=== PATIENT | female | born 1990 ===

== ENCOUNTER → 2022-05-21 12:50 | Observation (INO) ==
[2022-05-21 10:38] LABS: Basophils % 0.1 %; Eosinophils % 0.3 %; Immature Granulocytes % 0.3 % (0-4); Red Cell Distribution Width 12.7 % (11.5-14.5)
[2022-05-21 10:39] LABS: Bilirubin,Urine Negative (Negative); Blood,Urine Negative (Negative); Clarity,Urine Clear (Clear); Color,Urine Light-Yellow (Yellow); Glucose,Urine (UA) Normal (Normal); Ketones,Urine Negative (Negative); Leukocyte Esterase,Urine Negative (Negative); Nitrite,Urine Negative (Negative); Protein,Urine Trace mg/dL (Neg-Trace); Specific Gravity,Urine 1.017 (1.010-1.025); Urobilinogen,Urine Normal (Normal)
[2022-05-21 10:40] LABS: Hematocrit 37.9 % (35.3-44.9); Hemoglobin 12.7 g/dL (11.5-15.4); Immature Platelets 6.3 % (1.1-6.1); Lymphocytes # 0.5 K/mcL (0.6-4.6); Lymphocytes % 7.5 %; Mean Corpuscular HGB Conc 33.5 g/dL (31.6-35.5); Mean Corpuscular Hemoglobin 28.7 pg (28.0-33.3); Mean Corpuscular Volume 85.7 fL (83.0-100.0); Mean Platelet Volume 11.5 fL (9.4-12.4); Monocytes # 0.6 K/mcL (0.0-1.3); Monocytes % 8.5 %; Neutrophils # 5.7 K/mcL (1.6-8.9); Platelet Count 133 K/mcL (140-400); Red Blood Count 4.42 M/mcL (3.82-4.97); Segmented Neutrophils % 83.3 %; White Blood Count 6.8 K/mcL (4.3-11.1)
[2022-05-21 10:57] LABS: BUN/Creatinine Ratio 22 (6-26); Blood Urea Nitrogen 15 mg/dL (6-20); Carbon Dioxide 20 mEq/L (23-29); Chloride 107 mEq/L (98-107); Glucose 78 mg/dL (70-105); Osmolality,Calculated 280 (280-300); Potassium 4.1 mEq/L (3.5-5.1); Sodium 135 mEq/L (136-145); eGFR For African Americans > 60 (> 60); eGFR For Non-African Americans > 60 (> 60)
[2022-05-21 10:59] LABS: Platelet Estimate Slight Decrease (Normal)
[2022-05-21 11:24] LABS: Adenovirus Not Detected (Not Detect); Coronavirus 229E Not Detected (Not Detect); Coronavirus HKU1 Not Detected (Not Detect); Coronavirus NL63 Not Detected (Not Detect); Coronavirus OC43 Not Detected (Not Detect)
[2022-05-21 11:26] LABS: Bordetella Pertussis Not Detected (Not Detect); Chlamydophila pneumoniae Not Detected (Not Detect); Human Metapneumovirus Not Detected (Not Detect); Human Rhinovirus/Enterovirus Not Detected (Not Detect); Influenza A Subtype 2009 H1 Not Detected (Not Detect); Influenza B Not Detected (Not Detect); Mycoplasma pneumoniae Not Detected (Not Detect); Parainfluenza Virus 1 Not Detected (Not Detect); Parainfluenza Virus 2 Not Detected (Not Detect); Parainfluenza Virus 3 Not Detected (Not Detect); Parainfluenza Virus 4 Not Detected (Not Detect); Respiratory Syncytial Virus Not Detected (Not Detect); SARS-CoV-2 DETECTED (Not Detect)
[~2022-05-21 12:50] MED LIST: Ondansetron 4 MG/2 ML VIAL IVP ONE; Ringers Solution, Lactated 1,000 ML IVC SCH
== END | disposition home or self-care (01) ==
LOC: 1NENULAB
PROVIDERS: ADMIT Advanced Practice Midwife; ATTEND Advanced Practice Midwife

== ENCOUNTER 2022-05-31 17:32 | Inpatient (IN) ==
[2022-05-31] MEDS ORDERED: Naloxone 0.4 MG/ML INJ IVP PRN (18:37)
[2022-05-31] MEDS ORDERED: Famotidine 20 MG/2 ML VIAL IVP PRN (18:37)
[2022-05-31] MEDS ORDERED: Azithromycin 500 MG in 0.9 % Sodium Chloride 250 ML IVPB PRN (18:37)
[2022-05-31] MEDS ORDERED: Metoclopramide 10 MG/2 ML VIAL IVP PRN (18:37)
[2022-05-31] MEDS ORDERED: *HR* Labetalol 20 MG/4 ML SYRINGE IVP ONE ×3 (18:49→19:21)
[2022-05-31 18:56] LABS: Basophils % 0.1 %; Eosinophils # 0.1 K/mcL (0.0-0.6); Eosinophils % 0.4 %; Hematocrit 37.6 % (35.3-44.9); Hemoglobin 12.9 g/dL (11.5-15.4); Immature Granulocytes % 0.5 % (0-4); Lymphocytes % 23.2 %; Mean Corpuscular HGB Conc 34.3 g/dL (31.6-35.5); Mean Corpuscular Hemoglobin 29.1 pg (28.0-33.3); Mean Corpuscular Volume 84.7 fL (83.0-100.0); Mean Platelet Volume 12.2 fL (9.4-12.4); Monocytes # 0.9 K/mcL (0.0-1.3); Monocytes % 6.9 %; Neutrophils # 8.8 K/mcL (1.6-8.9); Platelet Count 215 K/mcL (140-400); Red Blood Count 4.44 M/mcL (3.82-4.97); Red Cell Distribution Width 12.8 % (11.5-14.5); Segmented Neutrophils % 68.9 %; White Blood Count 12.7 K/mcL (4.3-11.1)
[2022-05-31 19:13] LABS: Amphetamine Screen,Urine Negative ng/mL (Cutoff=1000); Barbiturate Screen,Urine Negative ng/mL (Cutoff=200); Benzodiazepines Screen,Urine Negative ng/mL (Cutoff=200); Cannabinoid Screen,Urine Negative ng/mL (Cutoff = 50); Cocaine Screen,Urine Negative ng/mL (Cutoff= 300); Creatinine,Urine 196 mg/dL; Opiate Screen,Urine Negative ng/mL (Cutoff=300); Phencyclidine Screen,Urine Negative ng/mL (Cutoff=25); Protein/Creatinine Ratio,Urine 0.58 mg/mg (0.00-0.20)
[2022-05-31 19:44] LABS: Alanine Aminotransferase 31 Units/L (7-52); BUN/Creatinine Ratio 19 (6-26); Blood Urea Nitrogen 16 mg/dL (6-20); Uric Acid 6.3 mg/dL (2.3-7.6); eGFR For African Americans > 60 (> 60); eGFR For Non-African Americans > 60 (> 60)
[2022-05-31] MEDS ORDERED: Magnesium Sulf 20 gm/SW 500mL 6 GM/150 ML BAG IV ONE (19:50)
[2022-05-31] MEDS: miSOPROStoL 25 MCG TABLET PO SCH (20:10)
[2022-05-31] MEDS ORDERED: EPHEDrine 50 MG/ML VIAL IVP PRN (20:10)
[2022-05-31] MEDS: Ringers Solution, Lactated 1,000 ML IVC SCH (20:15)
[2022-05-31] MEDS ORDERED: Calcium Gluconate 1,000 MG/10 ML VIAL IVP PRN (20:35)
[2022-05-31] MEDS: Magnesium Sulf 20 gm/SW 500mL 20 GM/500 ML IV.SOLN IVC SCH (20:54)
[2022-06-01] MEDS: miSOPROStoL 25 MCG TABLET PO SCH (00:12)
[2022-06-01] MEDS: Oxytocin 30 UNIT/503 ML BAG IVC SCH ×2 (04:20→21:59)
[2022-06-01] MEDS: Ringers Solution, Lactated 1,000 ML IVC SCH (06:58)
[2022-06-01] MEDS: Magnesium Sulf 20 gm/SW 500mL 20 GM/500 ML IV.SOLN IVC SCH ×2 (06:58→16:59)
[2022-06-01 08:30] LABS: Basophils % 0.2 %; Eosinophils % 0.2 %; Hematocrit 37.8 % (35.3-44.9); Hemoglobin 12.9 g/dL (11.5-15.4); Immature Granulocytes % 0.5 % (0-4); Lymphocytes # 2.4 K/mcL (0.6-4.6); Lymphocytes % 18.2 %; Mean Corpuscular HGB Conc 34.1 g/dL (31.6-35.5); Mean Corpuscular Hemoglobin 28.7 pg (28.0-33.3); Mean Corpuscular Volume 84.2 fL (83.0-100.0); Mean Platelet Volume 11.7 fL (9.4-12.4); Monocytes # 0.8 K/mcL (0.0-1.3); Neutrophils # 9.9 K/mcL (1.6-8.9); Platelet Count 185 K/mcL (140-400); Red Blood Count 4.49 M/mcL (3.82-4.97); Red Cell Distribution Width 12.9 % (11.5-14.5); Segmented Neutrophils % 74.9 %; White Blood Count 13.2 K/mcL (4.3-11.1)
[2022-06-01 08:50] LABS: Alanine Aminotransferase 31 Units/L (7-52); Aspartate Amino Transferase 25 Units/L (13-39); BUN/Creatinine Ratio 13 (6-26); Blood Urea Nitrogen 9 mg/dL (6-20); Lactate Dehydrogenase 186 Units/L (140-271); Uric Acid 6.5 mg/dL (2.3-7.6); eGFR For African Americans > 60 (> 60); eGFR For Non-African Americans > 60 (> 60)
[2022-06-01] MEDS: Epidural Premix (fent/bupiv) 110 ML EP SCH ×2 (09:34→17:23)
[2022-06-01] MEDS ORDERED: Ropivacaine/PF 0.2% 20 ML VIAL ONE (19:50)
[2022-06-01] MEDS ORDERED: Ondansetron 4 MG/2 ML VIAL ONE (20:33)
[2022-06-02] MEDS: Ringers Solution, Lactated 1,000 ML IVC SCH (00:35)
[2022-06-02] MEDS: Epidural Premix (fent/bupiv) 110 ML EP SCH (00:35)
[2022-06-02] MEDS: Magnesium Sulf 20 gm/SW 500mL 20 GM/500 ML IV.SOLN IVC SCH ×3 (03:02→23:11)
[2022-06-02] MEDS ORDERED: Ropivacaine/PF 0.5% 30 ML VIAL ONE (05:20)
[2022-06-02] MEDS ORDERED: Lidocaine/EPI 1:200k 2% PF 20 ML VIAL ONE (05:20)
[2022-06-02] MEDS ORDERED: *HR* FentaNYL (PF) 100 MCG/2 ML VIAL ONE (05:20)
[2022-06-02] MEDS ORDERED: *HR* Morphine Sulfate/PF 10 MG/10 ML AMPUL ONE (05:33)
[2022-06-02] MEDS ORDERED: Metoclopramide 10 MG/2 ML VIAL IVP ONE (05:35)
[2022-06-02] MEDS ORDERED: Ringers Solution, Lactated 1,000 ML ONE ×2 (05:35→14:38)
[2022-06-02] MEDS ORDERED: Ondansetron 4 MG/2 ML VIAL ONE (05:35)
[2022-06-02] MEDS ORDERED: Famotidine 20 MG/2 ML VIAL IVP ONE (05:35)
[2022-06-02] MEDS ORDERED: *HR* Oxytocin 10 UNIT/ML VIAL ONE (05:35)
[2022-06-02] MEDS ORDERED: Ketorolac 30 MG/ML VIAL ONE (05:35)
[2022-06-02] MEDS ORDERED: CeFAZolin 2,000 MG/120 ML BAG IVPB ONE (05:35)
[2022-06-02] MEDS ORDERED: *HR* Midazolam HCl 2 MG/2 ML VIAL ONE (05:36)
[2022-06-02] MEDS ORDERED: EPHEDrine 50 MG/ML VIAL ONE (06:29)
[2022-06-02] MEDS ORDERED: *HR* Promethazine 25 MG/ML VIAL ONE (06:47)
[2022-06-02] MEDS ORDERED: *HR* Labetalol 20 MG/4 ML SYRINGE IVP PRN (06:59)
[2022-06-02] MEDS ORDERED: Promethazine 6.25 MG in Water for inj. (sterile) 20 ML IVPB PRN (06:59)
[2022-06-02] MEDS ORDERED: *HR* HYDROmorphone PF 0.5 MG/0.5 ML SYRINGE IVP PRN (06:59)
[2022-06-02] MEDS ORDERED: Oxytocin 30 UNIT/503 ML BAG IVC SCH (09:48)
[2022-06-02] MEDS ORDERED: Calcium Gluconate 1,000 MG/10 ML VIAL IVP PRN (09:48)
[2022-06-02] MEDS ORDERED: Metoclopramide 10 MG/2 ML VIAL IVP PRN (09:48)
[2022-06-02] MEDS ORDERED: Ondansetron 4 MG/2 ML VIAL IVP PRN (09:48)
[2022-06-02] MEDS ORDERED: Simethicone 80 MG TAB.CHEW PO PRN (09:48)
[2022-06-02] MEDS: Acetaminophen 325 MG TABLET PO SCH ×3 (11:53→20:04)
[2022-06-02] MEDS: Ibuprofen 600 MG TABLET PO SCH ×2 (11:53→18:54)
[2022-06-02] MEDS ORDERED: Ringers Solution, Lactated 1,000 ML IVC SCH (14:45)
[2022-06-02] MEDS: *HR* OxyCODONE Immed Rel 5 MG TABLET PO PRN (23:11)
[2022-06-03] MEDS: Ibuprofen 600 MG TABLET PO SCH ×4 (02:35→23:05)
[2022-06-03] MEDS: Acetaminophen 325 MG TABLET PO SCH ×4 (02:36→23:05)
[2022-06-03] MEDS: Prenatal Vit/FA 1 EACH TABLET PO SCH ×2 (05:47→10:04)
[2022-06-03] MEDS: *HR* OxyCODONE Immed Rel 5 MG TABLET PO PRN (20:49)
[2022-06-04] MEDS: Ibuprofen 600 MG TABLET PO SCH ×3 (06:11→12:51)
[2022-06-04] MEDS: Acetaminophen 325 MG TABLET PO SCH ×2 (06:11→12:51)
[2022-06-04] MEDS: Prenatal Vit/FA 1 EACH TABLET PO SCH (07:55)
[2022-06-04 14:26] VITALS: BP 117/63; PULSE 56; TEMP 97.3; O2SAT 92
[2022-06-04 15:20] LABS: Basophils % 0.2 %; Eosinophils # 0.3 K/mcL (0.0-0.6); Eosinophils % 2.7 %; Hematocrit 28.9 % (35.3-44.9); Immature Granulocytes % 0.5 % (0-4); Lymphocytes # 1.5 K/mcL (0.6-4.6); Lymphocytes % 12.8 %; Mean Corpuscular HGB Conc 31.8 g/dL (31.6-35.5); Mean Corpuscular Hemoglobin 28.5 pg (28.0-33.3); Mean Corpuscular Volume 89.5 fL (83.0-100.0); Mean Platelet Volume 10.5 fL (9.4-12.4); Monocytes # 0.8 K/mcL (0.0-1.3); Monocytes % 6.5 %; Neutrophils # 8.9 K/mcL (1.6-8.9); Platelet Count 219 K/mcL (140-400); Red Blood Count 3.23 M/mcL (3.82-4.97); Red Cell Distribution Width 13.8 % (11.5-14.5); Segmented Neutrophils % 77.3 %; White Blood Count 11.5 K/mcL (4.3-11.1)
[2022-06-04 15:21] LABS: Hemoglobin 9.2 g/dL (11.5-15.4)
== END 2022-06-04 19:20 | disposition home or self-care (01) | DRG 788 ==
LOC: 1NENULAB 17:32 → 1NENUOBS 06-02 09:45
PROVIDERS: ADMIT Registered Nurse; ATTEND Registered Nurse